=== PATIENT | female | born 1960 | race Two or more races ===

== ENCOUNTER 2025-02-11 09:56 | Day surgery (SDC) | payer OTHER ==
[~2025-02-11] VITALS: Ht 160 cm; Wt 104.3 kg
[~2025-02-11 09:56] MED LIST: CELE200C PO; MIRA25TA OR
--- NOTE | 2025-02-11 12:04 | DVHHP2 ---
GI H&P Pre-Op Assessment Date: 02/11/25 Chief complaint: colon cancer screening, belching and bloating HPI: per clinic note Past medical history: per clinic note Past surgical history: per clinic note Family history: per clinic note Physical exam: General: NAD, AAOX3 HEENT: PERRL, no scleral icterus, normal hearing, gums without lesions or bleeding, oropharynx clear without erythema or exudate. Neck: Supple without enlargement of the thyroid, or lymphadenopathy. Chest: Normal size and shape, no tenderness, lung kemp clear to auscultation and percussion, nonlabored breathing. Heart: RRR, no murmur Abdomen: non-distended, no tenderness to palpation, +BS, no hepatosplenomegaly Extremities: no edema Neurological: CN II-XII intact, sensation intact in all extremities, 5+ strength in all extremities Skin: No rashes, No jaundice Assessment: - colon cancer screening - belching and bloating Plan: - EGD - Colonoscopy - Risks (bleeding, infection, perforation, reaction to sedation medications and cardiopulmonary arrest) and benefit of the procedure were explained to patient. Patient agrees to undergo the procedure. JENNYFER MCKINLEY MD Feb 11, 2025 12:04
[2025-02-11] MEDS ORDERED: PROPOFOL 10 MG/ML 20 ML IV ONE ×2 (12:15→12:30)
[2025-02-11] MEDS ORDERED: LIDOCAINE 2% (LOCAL ANESTH.) PF 5ml SDV ONE (12:16)
[2025-02-11 12:43] VITALS: TEMP 98.2; O2SAT 98
--- NOTE | 2025-02-11 12:46 | DVHOP2 ---
Operative Report DATE OF OPERATION: 02/11/25 PROCEDURE: Upper Endoscopy. PREOPERATIVE INDICATION: The patient is a 64 -year-old female undergoing endoscopy for belching and bloating. POSTOPERATIVE DIAGNOSES: 1. 1 cm duodenal polyp in the duodenal bulb. It was biopsied. 2. Slight duodenitis in the duodenal bulb. 3. Gastric biopsy was obtained to evaluate for H pylori. PROCEDURE PERFORMED BY: Evan Cobos SCOPE: Olympus videoendoscope. ASA CLASS: 3 PREOPERATIVE MEDICATIONS: THIAGO Torres CRNA PROCEDURE IN DETAIL: After obtaining an informed consent, the patient was placed on left lateral decubitus position. The patient was then sedated with the above medications. A bite block was placed between her teeth. The endoscope was then passed through the oropharynx, into the esophagus, and through the stomach and pylorus up to the second and third part of the duodenum. There was a 1 cm duodenal polyp in the duodenal bulb. Is likely to be benign polyp. Biopsy of the polyp with cold forceps was obtained. There was slight duodenitis in the duodenal bulb. The stomach was normal in appearance. Gastric biopsies were obtained with cold forceps to evaluate for H pylori. The GE junction was normal in appearance at 35 cm. The esophagus was normal in appearance. The endoscope was then withdrawn. The patient tolerated the procedure well without difficulty. COMPLICATIONS : None SPECIMENS: Gastric biopsies DISPOSITION: D/C to home PLAN: 1. Await for biopsy result EVAN COBOS MD Feb 11, 2025 12:46
--- NOTE | 2025-02-11 12:47 | DVHOP2 ---
Operative Report DATE OF OPERATION: 02/11/25 PROCEDURE: Colonoscopy. PREOPERATIVE INDICATION: The patient is a 64 -year-old female undergoing colonoscopy for colon cancer screening. POSTOPERATIVE DIAGNOSES: 1. 3 mm rectosigmoid polyp was removed with cold forceps. 2. Few diverticulosis in the left colon 3. Internal hemorrhoids PROCEDURE PERFORMED BY: Evan Cobos M.D. SCOPE: Olympus videocolonoscope. ASA CLASS: 3 PREOPERATIVE MEDICATIONS: MAC with Brian GRANULATING MACHINE OPERATOR PROCEDURE IN DETAIL: After obtaining an informed consent, the patient was placed on left lateral decubitus position. She was then sedated with the above medications. A rectal examination was performed that was normal. The colonoscope was then passed through the anus into the rectosigmoid and through the descending, transverse, and ascending colon up to the cecum with visualiza tion of the appendiceal orifice, base of the cecum and the ileocecal valve. A 3 mm rectosigmoid colon polyp was removed with cold biopsy forceps. There was a few small diverticulosis in the left colon. There were internal hemorrhoids. The colonoscope was then withdrawn. The patient tolerated the procedure well without difficulty. WITHDRAWAL TIME: 6 minutes QUALITY OF THE PREP: [place] Bowel Prep score: 6 COMPLICATIONS : None SPECIMENS: Colon polyp DISPOSITION: D/C to home PLAN: 1. Repeat colonoscopy base on biopsy result EVAN COBOS MD Feb 11, 2025 12:47
--- NOTE | 2025-02-11 12:48 | DVHDS2 ---
Physician Discharge Progress N Final Diagnosis: Duodenitis, duodenal polyp Colon polyp, diverticulosis, internal hemorrhoids Operations or Procedures: Operations or Procedures EGD with biopsy Colonoscopy with cold forceps biopsy polypectomy Condition on Discharge: Good Disposition: Home Discharge Instructions: Diet: Regular Activity: No Restrictions, As Tolerated Medications: Resume previous home medications Follow Up Care: Discharge Statement: "Patient was advised to return to the ER or call 911 if any headaches, dizzi ness, shortness of breath, chest pain, abdominal pain, bleeding, fevers, or worsening of medical condition. Patient was counseled about treatment plan, medications, possible side effects, patientverbalized understanding. All questions were answered to the best of my ability. This discharge took greater then 30 minutes in planning, reviewing documentation, counseling the patient, and discussing with other team members." JENNYFER MCKINLEY MD Feb 11, 2025 12:48
[2025-02-11 13:13] VITALS: BP 120/75; PULSE 78; RESP 13; O2SAT 96
== END 2025-02-11 13:20 | disposition home or self-care (01) ==
LOC: GI 09:56
PROVIDERS: ATTEND Internal Medicine Gastroenterology
DX: R14.0 Abdominal distension (gaseous) (principal); K29.80 Duodenitis without bleeding; K31.7 Polyp of stomach and duodenum; K57.30 Diverticulosis of large intestine without perforation or abscess without bleeding; K63.5 Polyp of colon; K64.8 Other hemorrhoids; D12.8 Benign neoplasm of rectum; K29.50 Unspecified chronic gastritis without bleeding; R14.1 Gas pain
CPT/HCPCS: 43239; 45380; 88305; 88312; 88342; J2003; J2704; J7030